=== PATIENT | female | born 1975 | race Caucasian/White ===

== ENCOUNTER 2017-04-14 14:46 | Emergency (ER) | payer MEDICAID ==
--- NOTE | 2017-04-14 15:17 | Emergency Department Report ---
Chief Complaint: Headache Stated Complaint: MIGRAINE HEADACHE Time Seen by Provider: 04/14/17 15:14 - HPI History of Present Illness: Pt reports headache. PT states she has a hx of migraines since she was a teenager. PT states she has never seen a neurologist for this. PT denies previous imaging of her head - ROS Review of Systems: + headache - Exam Physical Exam: PT alert and appropriate no focal weakness MSE screening note: Focused history and physical exam performed. Due to findings the following was ordered: ct lab ED Disposition for MSE Condition: Stable
--- NOTE | 2017-04-14 18:16 | Cat Scan Report ---
FINAL REPORT EXAM: CT HEAD/BRAIN WO CON HISTORY: headaches x 20+ years, gradually worsening TECHNIQUE: CT examination of the head without IV contrast PRIORS: None. FINDINGS: Clear included paranasal sinuses, mastoid air cells, and middle ear cavities. Left earring metallic artifact limits the examination. No acute air-fluid level visualized in the included air-filled sinuses. Bone windows demonstrate no acute fracture. The brain is without mass, mass effect, hemorrhage, or acute infarct. There is no extra-axial intracranial bleed, brain bleed, or midline shift. The ventricles and sulci are age-appropriate. IMPRESSION: No acute CVA, intracranial bleed, or brain mass
[2017-04-14] MEDS ORDERED: BENADRYL IV ONE (19:40)
[2017-04-14] MEDS ORDERED: REGLAN IV ONE (19:40)
[2017-04-14] MEDS ORDERED: NACL 0.9% 1000 ML 1,000 ML IV ONE (19:40)
[2017-04-14] MEDS ORDERED: TORADOL IM ONE ×2 (19:49→19:51)
--- NOTE | 2017-04-14 20:07 | Emergency Department Report ---
ED Headache HPI - General Chief Complaint: Headache Stated Complaint: MIGRAINE HEADACHE Time Seen by Provider: 04/14/17 15:14 Source: patient Exam Limitations: no limitations - History of Present Illness Initial Comments: This is a 41-year-old female nontoxic, well nourished in appearance, no acute signs of distress presents to the ED complaining of intermittent chronic headache that began yesterday. Patient denies any trauma, photophobia, stiff neck, nausea, vomiting, fever, chills, thunderclap headache, blurry vision, chest pain or shortness of breath. Patient stated she has had chronic migraine headaches since teenager and has significantly decreased to a level of 1 out of 10 with [id number] medications. Patient currently the ED stating her headache has been significantly decreased with very small amount of headache with number of 1 out of 10 because she took Excedrin Migraine 2 prior to coming to the emergency room. Patient describes headache as a diffuse headache with a gradual onset. Prior to arrival patient stated headache is a 6 out of a 10 and denies thunderclap headache. Patient currently in the interview denies any headache as stated it is 1 out of 10 due to treatment prior to the emergency room. Patient denies having a follow-up with a neurologist or primary care doctor for headaches. Patient denies any allergies. Past medical history only includes headache. Patient stated headache subsided with darkness but is worsened with light and noise. Timing/Duration: episodic Quality: mild Head Injury Location: other (diffuse) Recent Head Trauma: frequent headaches, chronic headaches Associated Symptoms: denies symptoms. denies: confusion, fatigue, facial pain, fever/chills, flushing, loss of consciousness, nausea/vomiting, nasal congestion , nasal drainage, numbness in legs/feet, rash, seizures, sinus infection, stiff neck, vision changes, weakness Allergies/Adverse Reactions: Allergies No Known Allergies Allergy (Unverified 04/14/17 15:13) Home Medications: Ambulatory Orders Butalb/Acetamin/Caff 50-325-40 [Fioricet] 1 tab PO Q6HR PRN #30 tab 04/14/17 ED Review of Systems ROS: Stated complaint: MIGRAINE HEADACHE Other details as noted in HPI Constitutional: denies: chills, fever Eyes: denies: eye pain, eye discharge, vision change ENT: denies: ear pain, throat pain Respiratory: denies: cough, shortness of breath, wheezing Cardiovascular: denies: chest pain, palpitations Endocrine: no symptoms reported Gastrointestinal: denies: abdominal pain, nausea, diarrhea Genitourinary: denies: urgency, dysuria, discharge Musculoskeletal: denies: back pain, joint swelling, arthralgia Skin: denies: rash, lesions Neurological: denies: headache, weakness, paresthesias Psychiatric: denies: anxiety, depression Hematological/Lymphatic: denies: easy bleeding, easy bruising ED Past Medical Hx - Past Medical History Hx Headaches / Migraines: Yes - Surgical History Additional Surgical History: C/S - Social History Smoking Status: Never Smoker Substance Use Type: None, Alcohol - Medications Home Medications: Home Medications Medication Instructions Recorded Confirmed Last Taken Type Butalb/Acetamin/Caff 50-325-40 1 tab PO Q6HR PRN #30 tab 04/14/17 Unknown Rx [Fioricet] ED Physical Exam - General Limitations: No Limitations General appearance: alert, in no apparent distress - Head Head exam: Present: atraumatic, normocephalic, normal inspection - Eye Eye exam: Present: normal appearance, PERRL, EOMI. Absent: scleral icterus, conjunctival injection, nystagmus, periorbital swelling, periorbital tenderness Pupils: Present: normal accommodation - ENT ENT exam: Present: normal exam, normal orophraynx, mucous membranes moist, TM's normal bilaterally, normal external ear exam - Neck Neck exam: Present: normal inspection, full ROM. Absent: tenderness, meningismus, lymphadenopathy, thyromegaly - Respiratory Respiratory exam: Present: normal lung sounds bilaterally. Absent: respiratory distress, wheezes, rales, stridor, chest wall tenderness, accessory muscle use, decreased breath sounds, prolonged expiratory - Cardiovascular Cardiovascular Exam: Present: regular rate, normal rhythm, normal heart sounds. Absent: bradycardia, tachycardia, irregular rhythm, systolic murmur, diastolic murmur, rubs, gallop - GI/Abdominal GI/Abdominal exam: Present: soft, normal bowel sounds. Absent: distended, tenderness, guarding, rebound, rigid, diminished bowel sounds - Rectal Rectal exam: Present: deferred - Extremities Exam Extremities exam: Present: normal inspection, full ROM, normal capillary refill. Absent: tenderness, pedal edema, joint swelling, calf tenderness - Back Exam Back exam: Present: normal inspection, full ROM. Absent: tenderness, CVA tenderness (R), CVA tenderness (L), muscle spasm, paraspinal tenderness, vertebral tenderness, rash noted - Neurological Exam Neurological exam: Present: alert, oriented X3, CN II-XII intact, normal gait, reflexes normal - Expanded Neurological Exam Expanded Patient oriented to: Present: person, place, time Speech: Present: fluid speech Cranial nerves: EOM's Intact: Normal, Gag Reflex: Normal, Tongue Deviation: Normal, Nystagmus: Normal, Facial Sensation: Normal, Facial Palsy with Forehead Movement: Normal, Facial Palsy without Forehead Movement: Normal Cerebellar function: Finger to Nose: Normal, Heel to Spangler: Normal, Romberg: Normal Upper motor neuron: Mundo Neglect: Normal, Pronator Drift: Normal, Babinski Sign : Normal, Sensory Extinction: Normal Sensory exam: Upper Extremity Light Touch: Normal, Upper Extremity Pin Prick: Normal, Upper Extremity Temperature: Normal, UE 2 Point Discrimination: Normal, Lower Extremity Light Touch: Normal, Lower Extremity Pin Prick: Normal, Lower Extremity Temperature: Normal, LE 2 Point Discrimination: Normal Motor strength exam: RUE: 5, LUE: 5, RLE: 5, LLE: 5 DTR: bicep (R): 2+, bicep (L): 2+, tricep (R): 2+, tricep (L): 2+, knee (R): 2+ , knee (L): 2+, ankle (R): 2+, ankle (L): 2+ Best Eye Response (Lindsey): (4) open spontaneously Best Motor Response (Get): (6) obeys commands Best Verbal Response (Get): (5) oriented Get Total: 15 - Psychiatric Psychiatric exam: Present: normal affect, normal mood - Skin Skin exam: Present: warm, dry, intact, normal color. Absent: rash ED Course Vital Signs 04/14/17 04/14/17 15:13 19:50 Temperature 99 F Pulse Rate 93 H Respiratory 16 18 Rate Blood Pressure 157/78 O2 Sat by Pulse 100 Oximetry - Reevaluation(s) Reevaluation #1: 04/14/17 20:06 Patient is speaking in full sentences with no signs of distress noted. ED Medical Decision Making - Medical Decision Making 41-year-old female that presents with chronic intermittent headaches. Patient in the ED maxine denies any headache and stated has subsided mostly with slight headache of level 1/10. Patient deniesn any trauma. Patient was instructed and referred to follow-up with a neurologist or primary care doctor. Patient was prescribed Fioricet at time of discharge. At time time of discharge, the patient does not seem toxic or ill in appearance. No acute signs of distress noted. Patient agrees to discharge treatment plan of care. No further questions noted by the patient. Critical care attestation.: If time is entered above; I have spent that time in minutes in the direct care of this critically ill patient, excluding procedure time. ED Disposition Clinical Impression: Headache Qualifiers: Headache type: unspecified Headache chronicity pattern: chronic headache Intractability: not intractable Qualified Code(s): R51 - Headache Disposition: DC-01 TO HOME OR SELFCARE Is pt being admited?: No Does the pt Need Aspirin: No Condition: Stable Instructions: Acute Headache (ED), Migraine Headache (ED), Butalbital/ Acetaminophen/Caffeine (By mouth) Additional Instructions: Follow-up with a neurologist/primary care doctor in 3-5 days or if symptoms worsen and continue return to emergency room as soon as possible. Prescriptions: Butalb/Acetamin/Caff 50-325-40 [Fioricet] 1 tab PO Q6HR PRN #30 tab PRN Reason: Headache Referrals: PRIMARY MD JOHN [Primary Care Provider] - 3-5 Days LALIT RODRIGUES MD [Staff Physician] - 3-5 Days VICKI RICHMOND JR, MD [Referring] - 3-5 Days [facility] [Outside] - 3-5 Days [facility] [Outside] - 3-5 Days Forms: Work/School Release Form(ED)
[2017-04-14 20:23] VITALS: BP 147/86
== END 2017-04-14 20:22 | disposition home or self-care (01) ==
LOC: ED 14:46
DX: G43.909 Migraine, unspecified, not intractable, without status migrainosus (principal)
CPT/HCPCS: 36415; 70450; 84703; 96372; 99284; J1885